=== PATIENT | female | born 1970 | race Caucasian/White ===

== ENCOUNTER → 2022-05-18 | Outpatient (CLI) | payer OTHER | LOC: M WHC 14:04 | PROVIDERS: ATTEND Nurse Practitioner Primary Care | DX: Z12.31 Encounter for screening mammogram for malignant neoplasm of breast (principal) ==

== ENCOUNTER → 2024-02-07 | Outpatient (CLI) | payer OTHER | LOC: M WHC 16:38 | PROVIDERS: ATTEND Student in an Organized Health Care Education/Training Program | DX: Z12.31 Encounter for screening mammogram for malignant neoplasm of breast (principal) ==

== ENCOUNTER 2024-12-22 09:18 | Day surgery (SDC) | payer OTHER ==
[~2024-12-22] VITALS: Ht 157.5 cm; Wt 81.6 kg
[~2024-12-22 09:18] MED LIST: MAGN100C3 PO; MULTTAB61 PO; PROP20TA72 PO
[2024-12-22] MEDS ORDERED: LIDOCAINE 2% 100MG/5ML SDV (FOR ANES.) As Ordered ONE (09:32)
[2024-12-22] MEDS ORDERED: GLYCOPYRROLATE INJ 0.2 MG/ML 2 ML VIAL As Ordered ONE (09:32)
[2024-12-22] MEDS ORDERED: ONDANSETRON 4MG 2ML VIAL As Ordered ONE (09:32)
[2024-12-22] MEDS ORDERED: METOCLOPRAMIDE INJ 10MG/2ML VIAL As Ordered ONE (09:32)
[2024-12-22] MEDS ORDERED: propofoL 200 MG/20 ML VIAL As Ordered ONE (09:32)
[2024-12-22] MEDS ORDERED: KETOROLAC 60MG 2ML VIAL As Ordered ONE (09:32)
[2024-12-22] MEDS ORDERED: MIDAZOLAM INJ 2MG/2ML VIAL As Ordered ONE (09:33)
[2024-12-22] MEDS ORDERED: fentaNYL 100 MCG/2 ML INJECTION As Ordered ONE (09:33)
[2024-12-22] MEDS ORDERED: LR 1,000 ML IV SCH ×2 (09:45→12:15)
[2024-12-22 10:00] LABS: HEMATOCRIT 44.5 % (36.0-47.0); HEMOGLOBIN 14.7 g/dl (12.0-15.5)
[2024-12-22] MEDS ORDERED: ACETAMINOPHEN 1000MG/100ML IV BAG As Ordered ONE (10:41)
[2024-12-22] MEDS ORDERED: ROCURONIUM BROMIDE 50MG/5ML VIAL As Ordered ONE (11:10)
[2024-12-22] MEDS: ceFAZolin 2 GM/D5W 50 ML IV BAG As Ordered ONE (11:22)
[2024-12-22] MEDS: LIDOCAINE 1% SDV 30ML VIAL As Ordered ONE (11:38)
[2024-12-22] MEDS ORDERED: SUGAMMADEX SODIUM 500 MG/5 ML VIAL (BRIDION) As Ordered ONE (11:42)
[2024-12-22] MEDS: SCOPOLAMINE 1MG TRANSDERMAL PATCH TOP ONE (11:54)
[2024-12-22] MEDS: SCOPOLAMINE 1MG TRANSDERMAL PATCH As Ordered ONE (11:54)
[2024-12-22] MEDS ORDERED: ONDANSETRON 4MG 2ML VIAL IV PRN (12:15)
[2024-12-22] MEDS ORDERED: oxyCODONE 5MG TAB PO PRN (12:15)
[2024-12-22] MEDS ORDERED: HYDROMORPHONE HCL 0.5 MG/ 0.5 ML SYRINGE IV PRN (12:15)
[2024-12-22] MEDS ORDERED: fentaNYL 100 MCG/2 ML INJECTION IV PRN (12:15)
[2024-12-22 13:50] VITALS: BP 142/69; TEMP 97.2; O2SAT 100
== END 2024-12-22 14:23 | disposition home or self-care (01) ==
LOC: M SDC 09:18
PROVIDERS: ATTEND Obstetrics & Gynecology
DX: N95.0 Postmenopausal bleeding (principal); D25.2 Subserosal leiomyoma of uterus; N99.71 Accidental puncture and laceration of a genitourinary system organ or structure during a genitourinary system procedure; Z88.8 Allergy status to other drugs, medicaments and biological substances; G43.909 Migraine, unspecified, not intractable, without status migrainosus; Z79.899 Other long term (current) drug therapy
CPT/HCPCS: 36415; 49320; 58555; 81025; 85014; 85018; 86850; 86900; 86901; J0131; J0690; J1100; J1596; J1885; J2250; J2405; J2765; J3010

== ENCOUNTER → 2025-01-16 | Outpatient (CLI) | payer OTHER | LOC: M WHC 09:58 | PROVIDERS: ATTEND Obstetrics & Gynecology | DX: Z48.89 Encounter for other specified surgical aftercare (principal) ==

== ENCOUNTER → 2025-02-18 | Outpatient (CLI) | payer OTHER | LOC: M WHC 08:46 | PROVIDERS: ATTEND Obstetrics & Gynecology | DX: Z48.89 Encounter for other specified surgical aftercare (principal) ==

== ENCOUNTER 2025-07-24 08:23 | Day surgery (SDC) | payer OTHER ==
[~2025-07-24] VITALS: Ht 157.5 cm; Wt 91.6 kg
[~2025-07-24 08:23] MED LIST changes: +ACETAMINOPHEN 1000MG/100ML IV BAG As Ordered ONE; +GLYCOPYRROLATE INJ 0.2 MG/ML 2 ML VIAL As Ordered ONE; +KETOROLAC 30 MG/ML 1 ML VIAL As Ordered ONE; +LIDOCAINE 2% 100 MG/5 ML SDV (FOR ANES.) As Ordered ONE; +MIDAZOLAM INJ 2 MG/2 ML VIAL As Ordered ONE; +ONDANSETRON 4MG 2ML VIAL As Ordered ONE; +ROCURONIUM BROMIDE 50MG/5ML VIAL As Ordered ONE; +SUGAMMADEX SODIUM 500 MG/5 ML VIAL As Ordered ONE; +dexAMETHasone 4 MG/ML 1 ML VIAL As Ordered ONE
[2025-07-24] MEDS ORDERED: LR 1,000 ML IV SCH (08:40)
[2025-07-24 09:26] LABS: BASO # 0.1 10^3/uL (0.0-0.2); BASO % 0.9 % (0.0-1.0); EOS # 0.2 10^3/uL (0.0-0.5); EOS % 2.3 % (0.0-3.0); LYMPH # 2.7 10^3/uL (1.5-5.0); LYMPH % 30.7 % (24.0-44.0); MONO # 0.5 10^3/uL (0.0-0.8); MONO % 5.6 % (2.0-8.0); NEUTROPHILS # 5.2 10^3/uL (1.5-8.5); NEUTROPHILS % 60.2 % (36.0-66.0); PLATELET COUNT, AUTOMATED 275 10^3/uL (150-450)
[2025-07-24 09:50] LABS: HCG, SERUM QUALITATIVE NEGATIVE (NEGATIVE)
[2025-07-24 09:53] LABS: ALT/SGPT 30 U/L (7.0-40); AST/SGOT 19 U/L (<34); CALCIUM LEVEL 8.7 MG/DL (8.5-10.1); CARBON DIOXIDE LEVEL 27 MMOL/L (20-31); CHLORIDE LEVEL 106 MMOL/L (98-107); CREATININE FOR GFR 0.70 MG/DL (0.55-1.30); GLOMERULAR FILTRATION RATE > 90.0 (>51); POTASSIUM SERUM 4.4 MMOL/L (3.5-5.1); SODIUM LEVEL 142 MMOL/L (136-145)
[2025-07-24] MEDS: ceFAZolin SOD 2 GM IV ONCE IV ONE (10:30)
[2025-07-24] MEDS: ACETAMINOPHEN *IV* 1,000 MG in IV 1 EA IV ONE (10:45)
[2025-07-24] MEDS ORDERED: HYDROmorphone HCL 2 MG/ML 1 ML VIAL As Ordered ONE (10:59)
[2025-07-24] MEDS ORDERED: SCOPOLAMINE 1MG TRANSDERMAL PATCH As Ordered ONE (13:14)
[2025-07-24] MEDS: SCOPOLAMINE 1MG TRANSDERMAL PATCH TOP ONE (13:15)
[2025-07-24] MEDS ORDERED: MORPHINE 4 MG/ML 1 ML VIAL IV PRN (13:25)
[2025-07-24] MEDS: ONDANSETRON 4MG 2ML VIAL IV PRN (14:02)
[2025-07-24 15:20] VITALS: BP 154/74; TEMP 98.9; O2SAT 98
== END 2025-07-24 15:43 | disposition home or self-care (01) ==
LOC: M SDC 08:23
PROVIDERS: ATTEND Obstetrics & Gynecology
DX: D25.2 Subserosal leiomyoma of uterus (principal); N95.0 Postmenopausal bleeding; N88.2 Stricture and stenosis of cervix uteri; N70.11 Chronic salpingitis; K21.9 Gastro-esophageal reflux disease without esophagitis; Z79.899 Other long term (current) drug therapy; Z98.51 Tubal ligation status; Z88.8 Allergy status to other drugs, medicaments and biological substances
CPT/HCPCS: 36415; 58571; 80053; 84703; 85025; 86850; 86900; 86901; 88307; J0131; J0665; J0688; J0690; J1100; J1171; J1596; J1885; J2250; J2405; J2765; J3010

== ENCOUNTER 2025-08-04 06:19 | Emergency (ER) | payer OTHER ==
[~2025-08-04] VITALS: Ht 157.5 cm; Wt 90.4 kg
[~2025-08-04 06:19] MED LIST changes: -ACETAMINOPHEN 1000MG/100ML IV BAG As Ordered ONE; -GLYCOPYRROLATE INJ 0.2 MG/ML 2 ML VIAL As Ordered ONE; -KETOROLAC 30 MG/ML 1 ML VIAL As Ordered ONE; -LIDOCAINE 2% 100 MG/5 ML SDV (FOR ANES.) As Ordered ONE; -MIDAZOLAM INJ 2 MG/2 ML VIAL As Ordered ONE; -ONDANSETRON 4MG 2ML VIAL As Ordered ONE; -ROCURONIUM BROMIDE 50MG/5ML VIAL As Ordered ONE; -SUGAMMADEX SODIUM 500 MG/5 ML VIAL As Ordered ONE; -dexAMETHasone 4 MG/ML 1 ML VIAL As Ordered ONE
[2025-08-04] MEDS ORDERED: AMLO2.5T3 (07:51)
[2025-08-04] MEDS: diphenhydrAMINE 50 MG/ML VIAL IV ONE (09:25)
[2025-08-04] MEDS: FAMOTIDINE 20 MG/2 ML VIAL IVP ONE (09:31)
[2025-08-04 11:15] VITALS: BP 166/74; O2SAT 97
[2025-08-04] MEDS ORDERED: FAMO40TA3 PO (11:31)
[2025-08-04] MEDS ORDERED: PRED10TA2 PO (11:31)
[2025-08-04 11:41] VITALS: TEMP 97.9
== END 2025-08-04 11:42 | disposition home or self-care (01) ==
LOC: M ED 06:19
DX: T78.40XA Allergy, unspecified, initial encounter (principal); R21 Rash and other nonspecific skin eruption; Z88.8 Allergy status to other drugs, medicaments and biological substances; Z79.52 Long term (current) use of systemic steroids; Z79.899 Other long term (current) drug therapy
CPT/HCPCS: 96374; 96375; 99284; J1200; J1308; J2919

== ENCOUNTER → 2025-08-12 | Outpatient (REF) | payer OTHER ==
[~2025-08-12] MED LIST changes: +AMLO2.5T3; +FAMO40TA3 PO; +PRED10TA2 PO
[2025-08-12 11:42] LABS: ALT/SGPT 27 U/L (7.0-40); AST/SGOT 12 U/L (<34); CALCIUM LEVEL 9.0 MG/DL (8.5-10.1); CARBON DIOXIDE LEVEL 30 MMOL/L (20-31); CHLORIDE LEVEL 100 MMOL/L (98-107); CREATININE FOR GFR 0.67 MG/DL (0.55-1.30); GLOMERULAR FILTRATION RATE > 90.0 (>51); POTASSIUM SERUM 4.4 MMOL/L (3.5-5.1); SODIUM LEVEL 140 MMOL/L (136-145)
== END ==
LOC: M SFHCWAGY 10:44
PROVIDERS: ATTEND Obstetrics & Gynecology
DX: Z48.89 Encounter for other specified surgical aftercare (principal)

== ENCOUNTER → 2025-09-21 | Outpatient (CLI) | payer OTHER | LOC: M WHC 12:32 | PROVIDERS: ATTEND Obstetrics & Gynecology | DX: Z12.31 Encounter for screening mammogram for malignant neoplasm of breast (principal) ==